=== PATIENT | female | born 1970 | race Hispanic/Latino ===

== ENCOUNTER → 2020-01-25 | Outpatient (CLI) | payer BC | LOC: MAMMO 14:31 | PROVIDERS: ATTEND Internal Medicine | DX: Z12.31 Encounter for screening mammogram for malignant neoplasm of breast (principal) | CPT/HCPCS: 77067 ==

== ENCOUNTER → 2021-02-18 | Outpatient (CLI) | payer BC | LOC: MAMMO 12:24 | PROVIDERS: ATTEND Internal Medicine | DX: Z12.31 Encounter for screening mammogram for malignant neoplasm of breast (principal) | CPT/HCPCS: 77067 ==

== ENCOUNTER → 2022-03-03 | Outpatient (CLI) | payer BC | LOC: MAMMO 09:22 | PROVIDERS: ATTEND Internal Medicine | DX: Z12.31 Encounter for screening mammogram for malignant neoplasm of breast (principal) | CPT/HCPCS: 77067 ==